=== PATIENT | female | born 1980 | race Caucasian/White ===

== ENCOUNTER → 2020-08-07 14:30 | Outpatient (BNVA) | payer MEDICAID, SELFPAY | PROVIDERS: Visit Provider Obstetrics & Gynecology | DX: N93.9 Abnormal uterine and vaginal bleeding, unspecified (principal) | CPT/HCPCS: 99212 ==

== ENCOUNTER 2020-09-17 10:55 | Outpatient (REF) | payer MEDICAID, SELFPAY ==
--- NOTE | ~2020-09-17 | US_ITS ---
EXAMINATION: US PELVIS CLINICAL INFORMATION: Abnormal uterine and vaginal bleeding. COMPARISON: Ultrasound pelvis 03/07/2019. TECHNIQUE: Ultrasound of the pelvis is performed using both transabdominal and transvaginal transducers along with Doppler. Patient refused transvaginal ultrasound. FINDINGS: UTERUS: The uterus is anteverted, retroflexed and measures 11.36 cm in length, 7.3 cm in AP and 6.8 cm in transverse dimension. The double wall endometrial thickness is 1.1 cm. The uterus is smooth in contour and has normal myometrial echogenicity. No visible fibroid seen at this time. Previously, a fibroid was noted. There are several anechoic nabothian cysts seen in the cervix. ADNEXA: Both ovaries are visualized. There is normal color flow to the adnexa. There is no ovarian torsion. There is no pelvic ascites or fluid collection. Right ovary is not visualized. Left ovary measures measures 3.9 x 2.7 x 2.8 and volume 15.4 mL. There is a dominant follicle measuring 2.2 x 1.6 x 1.7 cm. Previously, left ovary measured 2.1 x 1.6 x 1.4 cm and volume 2.4 mL. There is no free fluid in cul-de-sac. US/US pelvic complete IMPRESSION: Unremarkable uterus. No fibroids seen at this time. Small nabothian cysts seen in the cervix. Right ovary not seen. A dominant follicle visualized in left ovary on transabdominal ultrasound.
== END 2020-09-17 10:56 | disposition home or self-care (01) ==
LOC: HO.US 10:55
PROVIDERS: Visit Provider Obstetrics & Gynecology
DX: N93.9 Abnormal uterine and vaginal bleeding, unspecified (principal)
CPT/HCPCS: 76856

== ENCOUNTER → 2024-03-13 14:42 | Outpatient (RCR) | payer MEDICAID, SELFPAY ==
[2020-08-28 10:20] VITALS: BP 125/60; PULSE 96; RESP 18; TEMP 36.8; O2SAT 100; BMI 45.8
--- NOTE | 2020-08-28 10:48 | MHC.HEMONC ---
Pt here for Hem consult with Dr Pena. Pt reports heavy periods, lmp 07/27/20. No other complaints. Dr Pena into see pt. Follow up appointment made.
--- NOTE | 2020-08-28 11:19 | PM.HEMONCCN ---
Subjective - Subjective Chief complaint: Fatigue Patient: new to practice Consult date: 08/28/20 Primary Care Provider: Hailey Spencer NP Medical Summary: Diagnosis: Iron deficiency anemia Longstanding history of iron deficiency secondary to menorrhagia. Blood work in August 2020 revealed hemoglobin 8.7 gram/dL, hematocrit 29.4%, iron saturation of 4%, ferritin of 6. Normal vitamin B12 and folate levels. Five successful pregnancies, no history of parenteral iron therapy or blood transfusion. HPI - Consult Narrative Reason for consult: Iron deficiency anemia Narrative: Ana Novoa is a 40 year old female who has been diagnosed with iron deficiency anemia secondary to menorrhagia. She was prescribed oral iron but is having a hard time because of stomach upset. She is only taking iron liquid once a day. She reports fatigue and exertional shortness of breath. She reports occasional dizziness. No chest pain, cough, fever or chills. She denies any prior history of blood transfusion or parenteral iron therapy. No family history of thalassemia or sickle disease. She reports no GI complaints such as dyspepsia, abdominal pain, diarrhea or constipation. Review of Systems - Constitutional Reports as per HPI, Reports no additional constitutional complaints - Cardiovascular Reports no additional cardiovascular complaints - Respiratory Reports no additional respiratory complaints - Gastrointestinal Reports no additional gastrointestinal complaints Oncology Screenings - ECOG Performance Status ECOG Performance Status: 1 [facility] Medical History: Medical History (Last Reviewed 08/28/20 @ 10:12 by Krys Sage RN) Abnormal uterine bleeding Anxiety Depressed Initial obstetric visit Migraine Vertigo Family History: Family History (Last Updated 08/28/20 @ 10:14 by Krys Sage RN) Mother Asthma Father Diabetes Brother Diabetes Surgical History: Surgical History (Last Reviewed 08/28/20 @ 10:12 by Krys Sage RN) Hx of section Social History: Social History (Last Updated 08/28/20 @ 10:14 by Krys Sage RN) Alcohol History: Alcohol intake: never Alcohol History Details: Alcohol intake frequency: does not drink Tobacco History: Smoking Status: Never smoker Substance Use History: Use of substances other than those prescribed or required for medical reasons: No Sex/Gender Assessment: Gender identity: female Smoking status: Never smoker Home Medications and Allergies Home Medications Medication Instructions Recorded Confirmed Type citalopram 10 mg tablet 10 mg PO DAILY 08/07/20 08/28/20 History multivitamin 1 tab PO DAILY 08/07/20 08/28/20 History cholecalciferol (vitamin D3) 1 tab PO QAM 08/28/20 08/28/20 History cyclobenzaprine 1 tab PO BEDTIME 08/28/20 08/28/20 History ferrous sulfate 5 ml PO BID 08/28/20 08/28/20 History Allergies Allergy/AdvReac Type Severity Reaction Status Date / Time No Known Allergies Allergy Verified 08/07/20 14:39 [No Known Allergies*] Physical Exam Vital signs: Vital Signs Temp 98.3 F 08/28/20 10:20 Pulse 96 08/28/20 10:20 Resp 18 08/28/20 10:20 BP 125/60 08/28/20 10:20 Pulse Ox 100 08/28/20 10:20 Intake & Output 08/27/20 08/28/20 08/28/20 18:59 06:59 18:59 Other: Weight 121.3 kg [place] Weight in Grams [id number] Weight 121.3 kg - Constitutional Present: no acute distress - Routine HEENT Exam Head: Present: normal inspection Eye: Present: normal appearance - Routine Neck Exam Present: supple - Routine Respiratory Exam Present: CTAB - Routine Cardiovascular Exam Cardiovascular: Present: RRR, S1, S2 - Routine Abdominal Exam Present: normal bowel sounds Assessment and Plan (1) Iron deficiency anemia Status: Chronic 1. This is a 40-year-old woman diagnosed with iron deficiency anemia secondary to menorrhagia. She has normal vitamin B12 and folic acid levels. She has no gastrointestinal symptoms. She is on ferrous sulfate 325 mg once daily but is not tolerating it well. Today we discussed parenteral iron therapy and possible side effects and benefits. She is willing to proceed, iron dextran therapy will be scheduled in the following days. Possible side effects such as infusion and allergic reactions were discussed. Follow-up in 3 months.
--- NOTE | 2020-09-01 11:23 | MHC.HEMONCMA ---
Spoke with pharmacy to get Dextran dosing, faxed the order to [place] and i will wait for her to call me with dates for the patient.
== END | disposition home or self-care (01) ==
LOC: HO.ONC 08-28 10:00
PROVIDERS: PCP Registered Nurse; Referring Provider Registered Nurse; Visit Provider Internal Medicine
DX: D50.0 Iron deficiency anemia secondary to blood loss (chronic) (principal); N92.0 Excessive and frequent menstruation with regular cycle; Z79.899 Other long term (current) drug therapy
CPT/HCPCS: 99204